=== PATIENT | female | born 1970 | race Caucasian/White ===

== ENCOUNTER 2021-10-24 12:05 | Emergency (ER) | payer OTHER ==
[~2021-10-24] VITALS: Ht 165.1 cm; Wt 73.0 kg
[2021-10-24 12:10] VITALS: BP 184/118
== END 2021-10-24 13:07 | disposition left against medical advice (07) ==
LOC: ER 12:05
DX: I10 Essential (primary) hypertension (principal)
CPT/HCPCS: 99283

== ENCOUNTER 2025-02-06 15:22 | Emergency (ER) | payer OTHER ==
[~2025-02-06] VITALS: Ht 162.6 cm; Wt 71.0 kg
[2025-02-06 15:27] VITALS: O2SAT 97
[2025-02-06 16:32] LABS: BASOPHILS % 2.1 % (0.0-2.0); EOSINOPHILS % 2.0 % (0.0-5.0); HEMATOCRIT. 41.9 % (36.0-48.0); HEMOGLOBIN. 14.1 g/dL (12.0-16.0); LYMPHOCYTES % 25.2 % (20.0-50.0); MEAN PLATELET VOLUME 8.1 fl (7.4-10.4); MONOCYTES % 6.6 % (2.0-8.0); NEUTROPHILS % 64.1 % (40.0-76.0); PLATELET 284 x1000/uL (130-400); RED BLOOD CELL COUNT 4.60 mill/uL (4.2-5.4); RED CELL DISTRIBUTION WIDTH 13.2 % (11.6-14.6)
[2025-02-06 16:41] LABS: CREATININE 0.8 mg/dL (0.6-1.0); UREA NITROGEN BLOOD 10 mg/dL (9-23)
[2025-02-06 16:42] LABS: TROPONIN I HIGH SENSITIVITY < 4 ng/L (3.0-34)
[2025-02-06 16:43] LABS: ASPARTATE AMINOTRANSFERASE 19 IU/L (<34); BILIRUBIN DIRECT < 0.1 mg/dL (<=3.0); BILIRUBIN TOTAL 0.3 mg/dL (0.1-1.0); PROTEIN TOTAL 7.2 g/dL (6.0-8.3)
[2025-02-06 16:51] LABS: INR 1.0
[2025-02-06] MEDS: KETOROLAC 15MG/ML VIAL IV ONE (17:00)
[2025-02-06] MEDS: MECLIZINE 25MG TABLET PO ONE (17:20)
[2025-02-06] MEDS: LABETALOL 5MG/ML 4ML INJ IV ONE (17:20)
[2025-02-06 18:44] VITALS: BP 146/86; PULSE 69; RESP 16; TEMP 37; O2SAT 100
== END 2025-02-06 18:45 | disposition home or self-care (01) ==
LOC: ER 15:22
DX: I10 Essential (primary) hypertension (principal); R42 Dizziness and giddiness; R06.02 Shortness of breath; Z88.8 Allergy status to other drugs, medicaments and biological substances; Z79.899 Other long term (current) drug therapy
CPT/HCPCS: 80076; 80048; 83880; 83735; 85025; 85610; 85730; 84484; 36415; 71045; 70450; 93005; 96374; 96375; 99285; J8597; J1885; J3490; Z7610 ×2; A4606